=== PATIENT | female | born 1980 | race Two or more races ===

== ENCOUNTER 2016-10-10 12:58 | Emergency (ER) | payer SELFPAY ==
[~2016-10-10 12:58] MED LIST: BIOTIN1000 MCG PO; LAMICTAL200 M2 PO; LATUDA120 M1 PO; ONE DAILY WOME1 EAC3 PO; PROAIR HFA8.5 GM PO; XANAX0.5 M1 PO; ZITHROMAX250 M1 PO
== END 2016-10-10 14:16 ==
LOC: EDMED 12:58
DX: S63.502A Unspecified sprain of left wrist, initial encounter (principal); G43.909 Migraine, unspecified, not intractable, without status migrainosus; Z90.49 Acquired absence of other specified parts of digestive tract; Z98.890 Other specified postprocedural states; F17.210 Nicotine dependence, cigarettes, uncomplicated; W01.0XXA Fall on same level from slipping, tripping and stumbling without subsequent striking against object, initial encounter; Y92.019 Unspecified place in single-family (private) house as the place of occurrence of the external cause
CPT/HCPCS: J1200; J1885; J2765; J7030